=== PATIENT | male | born 1945 | race Caucasian/White ===

== ENCOUNTER 2018-09-07 16:17 | Inpatient (IN) | payer MEDICARE, BC ==
[~2018-09-07] VITALS: Ht 182.9 cm; Wt 77.1 kg
[~2018-09-07 16:17] MED LIST: FLUOXETINE
[2018-09-07] MEDS ORDERED: FLUO10TA PO (17:09)
[2018-09-07] MEDS ORDERED: ACET325T53 PO (17:09)
[2018-09-07] MEDS ORDERED: MERO1VIA IV (17:09)
[2018-09-07] MEDS ORDERED: HYDR-3326 PO (17:09)
[2018-09-07] MEDS ORDERED: LORA-114 PO (17:09)
[2018-09-07] MEDS ORDERED: MENT71OI TOP (17:09)
[2018-09-07] MEDS ORDERED: PANT40TA2 PO (17:09)
[2018-09-07] MEDS ORDERED: MULT-1045 PO (17:09)
[2018-09-07] MEDS ORDERED: ALBU2.5V7 NEB (17:09)
[2018-09-07] MEDS ORDERED: CLON0.5T12 PO (17:09)
[2018-09-07] MEDS ORDERED: LACT1CAP57 PO (17:09)
[2018-09-07] MEDS ORDERED: FLUT1BLS INH (17:09)
[2018-09-07] MEDS ORDERED: IPRA0.2S6 NEB (17:09)
[2018-09-07] MEDS ORDERED: RIVA20TA PO (17:23)
[2018-09-07 19:30] VITALS: BP 104/74
[2018-09-07] MEDS ORDERED: IPRATROPIUM BROMIDE 0.5 MG/2.5 ML NEBU NEB PRN (19:30)
[2018-09-07] MEDS ORDERED: ALBUTEROL SULFATE 2.5 MG/3 ML NEBU NEB PRN (19:30)
[2018-09-07] MEDS: MEROPENEM 1 G in IV NORMAL SALINE 100 ML IV SCH (21:23)
[2018-09-07] MEDS ORDERED: MEROPENEM 1 G VIAL IV SCH (22:00)
[2018-09-07] MEDS ORDERED: MEROPENEM 0.5 G in IV NORMAL SALINE 50 ML IV SCH (22:00)
[2018-09-07] MEDS ORDERED: Z GUARD REMEDY PASTE 57 GM TUBE TOP PRN (23:15)
--- NOTE | 2018-09-08 01:18 | NUR ---
received a 73 year old male admitted from Med-surg with admitting diagnosis of left hip IM nailing secondary to a mechanical fall. alert and oriented x3-4 On continous O2 @ 2L via nasal cannula, pulse ox 95%. Lungs CTA VSS needs attended. at bedside. Has a left #20 INT on antibiotic Meropenem secondary to gm (+) cocci in the sputum. Left hip with nasim intact with 3 4x4 dressing. Bruise noted on left hip. Patient also has rash on back area, denies itching but redness noted. On fall precautions, call yancey within reach. Patient is also on 1:1 sitter at bedside due to periods of confusion and forgetfulness, sometimes trying to get OOB. Rivas catheter intact draining yellow urine. I & O monitor. Denies any pain nor any discomfort. Dr Mills aware of patient's admission. Will let Dr Davila know about patient's admission in am.
[2018-09-08] MEDS ORDERED: ACETAMINOPHEN 325 MG TABLET PO PRN (02:45)
[2018-09-08] MEDS ORDERED: CLONAZEPAM 0.5 MG TABLET PO PRN (02:45)
[2018-09-08] MEDS ORDERED: CALMOSEPTINE 113 GM OINTMENT TOP PRN (02:45)
[2018-09-08] MEDS: HYDROCODONE/APAP 5-325MG TABLET PO PRN ×2 (02:58→14:20)
[2018-09-08] MEDS: MEROPENEM 1 G in IV NORMAL SALINE 100 ML IV SCH ×3 (05:56→21:04)
[2018-09-08 06:36] VITALS: BP 114/75
[2018-09-08] MEDS: PANTOPRAZOLE SODIUM 40 MG TABLET.DR PO SCH (06:42)
[2018-09-08 08:00] VITALS: BP 99/71
[2018-09-08] MEDS ORDERED: Medication Not On Formulary EA (Multivitamin (Multi-Vitamin Daily) 1 EACH) PO SCH (09:00)
[2018-09-08] MEDS: FLUOXETINE HCL 10 MG CAPSULE PO SCH (09:36)
[2018-09-08] MEDS: LACTOBACILLUS RHAMNOSUS GG 1 EACH CAPSULE PO SCH ×2 (09:36→20:51)
[2018-09-08] MEDS: LORATADINE 10 MG TABLET PO SCH (09:36)
[2018-09-08] MEDS: MULTIVITAMINS,THERAPEUTIC TABLET PO SCH (09:37)
[2018-09-08] MEDS: FLUTICASONE/VILANTEROL 1 EACH BLST.W.DEV INH SCH (14:23)
[2018-09-08 16:00] VITALS: BP 104/78
[2018-09-08] MEDS: RIVAROXABAN 10 MG TABLET PO SCH (17:48)
[2018-09-08 19:53] VITALS: BP 111/72
[2018-09-08] MEDS: HYDROCODONE/APAP 10-325 MG TABLET PO PRN (20:52)
--- NOTE | 2018-09-08 22:16 | NUR ---
SBAR report received. Awake upon rounds. AAO x3-4 On continous O2 @2L via nasal cannula, pulse Ox 95%. On IV antibiotic for gm (+) cocci in the sputum. Tolerated IV antibiotic well, no side effects noted, IV ABT going to left arm INT, no signs of infiltration or swelling noted on left arm. Rivas catheter intact draining yellow colored urine. I & O monitor. VSS. Medicated with 1 tab [place] as needed for pain on the left hip. Left hip incision intact with nasim and dry sterile dressing applied. VSS fall precautions maintained. Siderails up for safety. Needs attended. Call yancey within reach.
[2018-09-09] MEDS: MEROPENEM 1 G in IV NORMAL SALINE 100 ML IV SCH ×3 (06:14→21:17)
[2018-09-09] MEDS: PANTOPRAZOLE SODIUM 40 MG TABLET.DR PO SCH (06:29)
[2018-09-09 08:00] VITALS: BP 113/73
[2018-09-09] MEDS: LACTOBACILLUS RHAMNOSUS GG 1 EACH CAPSULE PO SCH ×2 (08:58→21:16)
[2018-09-09] MEDS: FLUTICASONE/VILANTEROL 1 EACH BLST.W.DEV INH SCH (08:58)
[2018-09-09] MEDS: LORATADINE 10 MG TABLET PO SCH (08:58)
[2018-09-09] MEDS: MULTIVITAMINS,THERAPEUTIC TABLET PO SCH (08:59)
[2018-09-09] MEDS: FLUOXETINE HCL 10 MG CAPSULE PO SCH (08:59)
--- NOTE | 2018-09-09 10:00 | NUR ---
Received pt. in bed with eyes closed and comfortable. Pt. A/Ox2-3 with episodes of forgetfulness and confusion. Pt responsive to verbal and tactile stimuli. Denies SOB and CP at this time. All due AM medications administered and tolerated well. Received with IV infusion for gram + cocci of the sputum. No new skin condition noted, lt. hip (3 sites) covered with surgical dressing. Safety measures and fall precaution in placed. Call light and all frequently used items within pt. reach. Will continue to monitor accordingly.
[2018-09-09] MEDS: HYDROCODONE/APAP 10-325 MG TABLET PO PRN ×2 (14:07→18:55)
[2018-09-09 16:00] VITALS: BP 133/77
[2018-09-09] MEDS: RIVAROXABAN 10 MG TABLET PO SCH (17:08)
--- NOTE | 2018-09-09 18:59 | NUR ---
EOS NOTE: No significant change during this shift. All other scheduled medications given and taken by pt. IV ABX given with no ASE noted. Pt. visited pt. Safety measure and precaution in placed. No new skin condition noted. Lt. hip surgical dressing changed as ordered. All pt. needs attended and met. Call light and all frequently used items within pt. reach. Will endorse to oncoming shift accordingly.
[2018-09-09 21:44] VITALS: BP 105/72
--- NOTE | 2018-09-10 02:18 | NUR ---
Received pt at the beginning of shift sleeping comfortably in bed. Aroused easily when alerted by name. AAO x2-3, with episodes of confusion. No acute distress noted. No c/o pain or discomfort, no facial cues for pain noted. IV on left forearm gauge 20, patent and intact, pt receiving Merrem. All due meds given as ordered. Safety measures maintained. Call light and personal belongings within reach. Will continue to monitor.
[2018-09-10] MEDS: PANTOPRAZOLE SODIUM 40 MG TABLET.DR PO SCH (06:08)
[2018-09-10] MEDS: MEROPENEM 1 G in IV NORMAL SALINE 100 ML IV SCH ×2 (06:08→14:15)
[2018-09-10 08:00] VITALS: BP 116/63
[2018-09-10] MEDS: LACTOBACILLUS RHAMNOSUS GG 1 EACH CAPSULE PO SCH ×2 (08:33→20:18)
[2018-09-10] MEDS: FLUTICASONE/VILANTEROL 1 EACH BLST.W.DEV INH SCH (08:33)
[2018-09-10] MEDS: LORATADINE 10 MG TABLET PO SCH (08:33)
[2018-09-10] MEDS: MULTIVITAMINS,THERAPEUTIC TABLET PO SCH (08:33)
[2018-09-10] MEDS: FLUOXETINE HCL 10 MG CAPSULE PO SCH (08:33)
[2018-09-10 11:40] LABS: BASOPHILS # (AUTO) 0.1 K/uL (0.0-8.0); BASOPHILS % (AUTO) 1.7 % (0.0-2.0); EOSINOPHILS # (AUTO) 0.4 K/uL (0.0-0.7); HEMATOCRIT 39.4 % (36.7-47.1); HEMOGLOBIN 13.5 g/dL (12.5-16.3); LYMPHOCYTES # (AUTO) 1.4 K/uL (20.0-40.0); LYMPHOCYTES % (AUTO) 16.9 % (20.5-51.5); MEAN CORPUSCULAR HEMOGLOBIN 31.2 uug (23.8-33.4); MEAN CORPUSCULAR HGB CONC 34 g/dL (32.5-36.3); MEAN CORPUSCULAR VOLUME 90.9 fL (73.0-96.2); MONOCYTES # (AUTO) 0.6 K/uL (2.0-10.0); MONOCYTES % (AUTO) 7.1 % (0.0-11.0); NEUTROPHILS # (AUTO) 5.8 K/uL (1.8-8.9); NEUTROPHILS % (AUTO) 69.3 % (38.5-71.5); PLATELET COUNT (AUTO) 601 K/uL (152-348); RED BLOOD CELL COUNT(AUTO) 4.33 MIL/uL (4.06-5.63); WHITE BLOOD COUNT (AUTO) 8.4 K/uL (3.6-10.2)
[2018-09-10 11:44] LABS: CARBON DIOXIDE 23 mmol/L (21-32); CHLORIDE 104 mmol/L (98-107); GLUCOSE 130 mg/dL (74-106); PHOSPHOROUS 3.2 mg/dL (2.5-4.9); POTASSIUM 4.3 mmol/L (3.5-5.1); UREA NITROGEN, BLOOD 20 mg/dL (7-18)
--- NOTE | 2018-09-10 11:46 | NUR ---
WOUND CARE CONSULT: PT PRESENTS WITH RASH TO BACK, BLANCHABLE REDNESS TO BUTTOCKS, SURGICAL DRESSING TO LEFT HIP/THIGH AREA, PRESENT ON ADMISSION. RECOMMENDATIONS MADE FOR SKIN PROTECTION AND DISCUSSED WITH NURSING STAFF. DEFER TO MD FOR RASH, UNKNOWN ETIOLOGY. DEFER TO SURGEON FOR SURGICAL SITE. WILL SEE PRN. MD IN AGREEMENT WITH PLAN OF CARE. CURRENT MAYE SCORE IS 16.
--- NOTE | 2018-09-10 12:33 | NUR ---
Received patient awake, alert and oriented with periods of confusion. Last dose of ABT treatment for PNA. chest x-ray relayed to MD Lucas with no new order. seen and examined by MD Reyna with order continue monitoring and oxygen via nasal cannula with PRN order. Wound nurse check the skin with order off loading turn and position every 2 hours. Continue therapy for ADL activity. will continue monitor
[2018-09-10] MEDS: MAGNESIUM HYDROXIDE 30 ML LIQUID UDC PO PRN (13:05)
[2018-09-10] MEDS: HYDROCODONE/APAP 10-325 MG TABLET PO PRN ×2 (13:11→20:23)
--- NOTE | 2018-09-10 13:20 | NUR ---
INTERDISCIPLINARY TEAM CONFERENCE
[2018-09-10 16:00] VITALS: BP 116/70
[2018-09-10] MEDS: ENSURE WITH FIBER 237 ML LIQUID (CHOCOLATE) PO SCH (16:30)
[2018-09-10] MEDS: RIVAROXABAN 10 MG TABLET PO SCH (16:33)
--- NOTE | 2018-09-10 20:58 | NUR ---
Received pt resting in bed. AAO x1-2. No acute distress noted, on room air and tolerating well. C/o generalized pain /, PRN [place] given as ordered. All due meds given. Turned and repositioned. Rivas catheter draining well with yellow colored urine. Safety measures maintained. Call light and personal belongings within reach. Will continue to monitor.
[2018-09-10 21:05] VITALS: BP 98/77
[2018-09-11] MEDS: HYDROCODONE/APAP 10-325 MG TABLET PO PRN ×4 (00:45→17:59)
[2018-09-11 05:02] VITALS: BP 114/69
[2018-09-11] MEDS: PANTOPRAZOLE SODIUM 40 MG TABLET.DR PO SCH (06:25)
[2018-09-11] MEDS: MULTIVITAMINS,THERAPEUTIC TABLET PO SCH (09:01)
[2018-09-11] MEDS: LORATADINE 10 MG TABLET PO SCH (09:01)
[2018-09-11] MEDS: FLUTICASONE/VILANTEROL 1 EACH BLST.W.DEV INH SCH (09:02)
[2018-09-11] MEDS: LACTOBACILLUS RHAMNOSUS GG 1 EACH CAPSULE PO SCH ×2 (09:03→20:40)
[2018-09-11] MEDS: FLUOXETINE HCL 10 MG CAPSULE PO SCH (09:05)
[2018-09-11] MEDS: ENSURE WITH FIBER 237 ML LIQUID (CHOCOLATE) PO SCH ×2 (09:10→17:54)
[2018-09-11 10:09] VITALS: BP 124/83
[2018-09-11] MEDS: RIVAROXABAN 10 MG TABLET PO SCH (17:51)
[2018-09-11] MEDS ORDERED: BISACODYL 5 MG TABLET.DR PO PRN (19:30)
[2018-09-11 20:23] VITALS: BP 107/75
[2018-09-11] MEDS: MAGNESIUM HYDROXIDE 30 ML LIQUID UDC PO PRN (20:40)
--- NOTE | 2018-09-11 20:45 | NUR ---
nsg: Received pt resting in bed. Alert and oriented x1-2.pleasant upon approach. No acute distress noted, on room air and tolerating well.denies pain or discomfort at this time.All due meds given. patient is constipated. mom 30 ml po prn given.Turned and repositioned. Rivas catheter draining well with yellow colored urine. Safety measures maintained. Call light and personal belongings within reach. Will continue to monitor.
[2018-09-12 04:37] VITALS: BP 103/66
--- NOTE | 2018-09-12 05:52 | NUR ---
NSG:Resting in bed comfortably. No significant change during this shift. Safety measure and precaution in placed. No new skin condition noted. Lt. hip surgical dressing changed as ordered. All pt. needs attended and met. Call light and all frequently used items within pt. reach. f/c in place draining yellow urine.denies pain or discomfort at this time.
[2018-09-12] MEDS: PANTOPRAZOLE SODIUM 40 MG TABLET.DR PO SCH (06:12)
--- NOTE | 2018-09-12 06:52 | NUR ---
nsg: mom given @ hs . no result noted.
[2018-09-12 08:03] VITALS: BP 104/76
[2018-09-12] MEDS: LORATADINE 10 MG TABLET PO SCH (08:58)
[2018-09-12] MEDS: MULTIVITAMINS,THERAPEUTIC TABLET PO SCH (08:58)
[2018-09-12] MEDS: FLUTICASONE/VILANTEROL 1 EACH BLST.W.DEV INH SCH (09:00)
[2018-09-12] MEDS: LACTOBACILLUS RHAMNOSUS GG 1 EACH CAPSULE PO SCH ×2 (09:01→20:52)
[2018-09-12] MEDS: FLUOXETINE HCL 10 MG CAPSULE PO SCH (09:01)
[2018-09-12] MEDS: ENSURE WITH FIBER 237 ML LIQUID (CHOCOLATE) PO SCH ×2 (09:04→16:48)
[2018-09-12] MEDS: HYDROCODONE/APAP 10-325 MG TABLET PO PRN ×3 (09:20→18:00)
--- NOTE | 2018-09-12 09:58 | NUR ---
Patient received in bed. Response to touch and auditory stimulation. AAO x4. Able to make needs known. No sign of acute distress or SOB was noted. On room air. [place] 10/325 given for 7/10 pain. Patient assessed. Safety measures maintained. Rivas draining yellow urine. Bed in low position, brake and alarm on, side rails up x2. Call light and personal belongings within reach. Will continue to monitor.
--- NOTE | 2018-09-12 14:59 | NUR ---
NSG: Left forearm IV D/C due IV being over 72 hours old with IV medications no longer being administered. No complaint of pain during procedure. Patient left resting comfortably in bed. Will continue to monitor.
[2018-09-12 16:25] VITALS: BP 95/63
[2018-09-12] MEDS: RIVAROXABAN 10 MG TABLET PO SCH (16:48)
--- NOTE | 2018-09-12 18:42 | NUR ---
End of Shift Note: No significant change during this shift. All other scheduled medications given and taken by pt. PRN [place] given at 1800. Pt. visited and brought food.n Safety measures and precaution in place for patient. No new skin condition noted. Teaching for incentive spirometry use performed. Used teach back method. All pt. needs attended and met. Call light and all frequently used items within pt. reach. Will endorse to oncoming shift.
[2018-09-12 20:37] VITALS: BP 103/63
[2018-09-12] MEDS: OXYCODONE HCL 10 MG TAB.SR.12H PO SCH (20:55)
--- NOTE | 2018-09-12 23:18 | NUR ---
Received pt in bed, AAO x 1-2 watching television. No acute distress noted. Verbally responsive and able to make needs known. Denies pain or discomfort. All due medications give as ordered by MD, tolerated well. Rivas draining clear, yellow urine into bag. All safety measures and fall precautions maintained. Call light and all personal belongings within reach. Will continue to monitor.
[2018-09-13 04:55] VITALS: BP 101/73
[2018-09-13] MEDS: PANTOPRAZOLE SODIUM 40 MG TABLET.DR PO SCH (06:32)
[2018-09-13 07:35] VITALS: BP 109/57
[2018-09-13] MEDS: MULTIVITAMINS,THERAPEUTIC TABLET PO SCH (08:58)
[2018-09-13] MEDS: LORATADINE 10 MG TABLET PO SCH (08:59)
[2018-09-13] MEDS: FLUOXETINE HCL 10 MG CAPSULE PO SCH (09:00)
[2018-09-13] MEDS: ENSURE WITH FIBER 237 ML LIQUID (CHOCOLATE) PO SCH ×2 (09:00→17:17)
[2018-09-13] MEDS: OXYCODONE HCL 10 MG TAB.SR.12H PO SCH ×2 (09:00→20:29)
[2018-09-13] MEDS: LACTOBACILLUS RHAMNOSUS GG 1 EACH CAPSULE PO SCH ×2 (09:00→20:29)
[2018-09-13] MEDS: FLUTICASONE/VILANTEROL 1 EACH BLST.W.DEV INH SCH (09:01)
--- NOTE | 2018-09-13 09:27 | NUR ---
Received pt. in bed with eyes closed and comfortable. Pt. A/Ox1-2 with episodes of forgetfulness and confusion. Pt responsive to verbal and tactile stimuli. Denies SOB and CP at this time. All due AM medications administered and tolerated well. No new skin condition noted, lt. hip (3 sites) covered with surgical dressing. Pt. seen by Dr. Reyna this AM with no new order. Safety measures and fall precaution in placed. Call light and all frequently used items within pt. reach. Will continue to monitor accordingly. Addendum: 09/13/18 at 0940 by JOHANA LOVING RN F/C intact with clear yellow urine output, no device malfunction identified.
[2018-09-13 16:30] VITALS: BP 123/64
[2018-09-13] MEDS: RIVAROXABAN 10 MG TABLET PO SCH (17:22)
--- NOTE | 2018-09-13 18:32 | NUR ---
EOS NOTE: No significant change during this shift. All scheduled medications given and tolerated well. Safety measure and precaution in placed. No new skin condition noted. Lt. hip surgical dressing C/D/I. All pt. needs attended and met. Call light and all frequently used items within pt. reach. Will endorse to oncoming shift accordingly.
[2018-09-13 19:30] VITALS: BP 104/71
[2018-09-14] MEDS: HYDROCODONE/APAP 10-325 MG TABLET PO PRN ×2 (01:09→14:10)
[2018-09-14] MEDS: PANTOPRAZOLE SODIUM 40 MG TABLET.DR PO SCH (07:02)
[2018-09-14 08:48] VITALS: BP 107/71
[2018-09-14] MEDS: LORATADINE 10 MG TABLET PO SCH (08:55)
[2018-09-14] MEDS: MULTIVITAMINS,THERAPEUTIC TABLET PO SCH (08:55)
[2018-09-14] MEDS: ENSURE WITH FIBER 237 ML LIQUID (CHOCOLATE) PO SCH ×2 (08:56→17:55)
[2018-09-14] MEDS: OXYCODONE HCL 20 MG TAB.SR.12H PO SCH ×3 (08:56→23:18)
[2018-09-14] MEDS: LACTOBACILLUS RHAMNOSUS GG 1 EACH CAPSULE PO SCH ×2 (08:56→21:00)
[2018-09-14] MEDS: FLUOXETINE HCL 10 MG CAPSULE PO SCH (08:57)
[2018-09-14] MEDS: FLUTICASONE/VILANTEROL 1 EACH BLST.W.DEV INH SCH (08:57)
[2018-09-14 16:06] VITALS: BP 104/71
[2018-09-14] MEDS: RIVAROXABAN 10 MG TABLET PO SCH (17:59)
[2018-09-14 20:23] VITALS: BP 115/70
[2018-09-15 04:00] VITALS: BP 106/70
--- NOTE | 2018-09-15 06:00 | NUR ---
SLEPT MOST OF NIGHT AFTER OXYCONTIN GIVEN LAST NIGHT.
[2018-09-15] MEDS: PANTOPRAZOLE SODIUM 40 MG TABLET.DR PO SCH (06:44)
[2018-09-15 08:00] VITALS: BP 141/82
[2018-09-15] MEDS: LORATADINE 10 MG TABLET PO SCH (08:51)
[2018-09-15] MEDS: MULTIVITAMINS,THERAPEUTIC TABLET PO SCH (08:51)
[2018-09-15] MEDS: FLUTICASONE/VILANTEROL 1 EACH BLST.W.DEV INH SCH (08:51)
[2018-09-15] MEDS: OXYCODONE HCL 20 MG TAB.SR.12H PO SCH ×2 (08:51→20:49)
[2018-09-15] MEDS: FLUOXETINE HCL 10 MG CAPSULE PO SCH (08:51)
[2018-09-15] MEDS: LACTOBACILLUS RHAMNOSUS GG 1 EACH CAPSULE PO SCH ×2 (08:51→20:49)
[2018-09-15] MEDS: ENSURE WITH FIBER 237 ML LIQUID (CHOCOLATE) PO SCH ×2 (08:52→17:31)
[2018-09-15] MEDS: HYDROCODONE/APAP 10-325 MG TABLET PO PRN (08:52)
--- NOTE | 2018-09-15 10:56 | NUR ---
Received pt. in bed with eyes closed and comfortable. Pt. A/Ox2-3 with episodes of forgetfulness and confusion. Pt responsive to verbal and tactile stimuli. Denies SOB and CP at this time. All due AM medications administered and tolerated well. Refused Oxycontin (ATC) this AM, instead requested for [place] PRN, pt. teaching provided and verbalized understanding. No new skin condition noted. Rivas draining with clear yellow urine, remain patent and intact. Pt. with scheduled appointment to see Dr. Titus (Ortho) at 1500 with p/u time of 1400. Safety measures and fall precaution in placed. Call light and all frequently used items within pt. reach. Will continue to monitor accordingly.
--- NOTE | 2018-09-15 14:13 | NUR ---
1400 [facility] staff on-site for pt. p/u. Report and packet with CD given to receiving staff. Pt. left facility @ 140 for follow-up appt to see Dr. Titus in stable condition.
[2018-09-15 16:00] VITALS: BP 123/72
[2018-09-15] MEDS: RIVAROXABAN 10 MG TABLET PO SCH (17:42)
--- NOTE | 2018-09-15 18:38 | NUR ---
EOS NOTE: Pt. returned from appointment at 1700. Lt. hip incision nasim D/C during appt, open to air with steri-strips. Pictures taken and placed in pt. chart. No significant change during this shift. All scheduled medications given and tolerated well. brought in Wellbutrin SR bottle, per pt. was taking Wellbutrin 150 mg 2 tabs = 300 mg po qd with prozac at home. Notified Dr. Rosales and amenable with order. Orders noted and carried out. Safety measure and precaution in placed. Lt. hip surgical dressing C/D/I. All pt. needs attended and met. Call light and all frequently used items within pt. reach. Will endorse to oncoming shift accordingly.
[2018-09-15 20:09] VITALS: BP 109/78
--- NOTE | 2018-09-15 23:14 | NUR ---
Received pt in bed, appearing to be asleep but easily arousable to verbal stimuli and light touch. No acute distress noted. Verbally responsive and able to make needs known. Denies pain or discomfort at this time. All due medications given as ordered, tolerated well. Rivas cath noted, draining clear yellow urine into bag. All safety measures and fall precautions maintained. Call light and all personal belongings within reach. Will continue to monitor.
[2018-09-16 05:02] VITALS: BP 115/62
[2018-09-16] MEDS: PANTOPRAZOLE SODIUM 40 MG TABLET.DR PO SCH (06:03)
[2018-09-16 08:00] VITALS: BP 133/86
[2018-09-16] MEDS: HYDROCODONE/APAP 10-325 MG TABLET PO PRN (08:12)
[2018-09-16] MEDS: LORATADINE 10 MG TABLET PO SCH (08:52)
[2018-09-16] MEDS: MULTIVITAMINS,THERAPEUTIC TABLET PO SCH (08:52)
[2018-09-16] MEDS: FLUTICASONE/VILANTEROL 1 EACH BLST.W.DEV INH SCH (08:52)
[2018-09-16] MEDS: LACTOBACILLUS RHAMNOSUS GG 1 EACH CAPSULE PO SCH ×2 (08:53→20:45)
[2018-09-16] MEDS: FLUOXETINE HCL 10 MG CAPSULE PO SCH (08:53)
[2018-09-16] MEDS: ENSURE WITH FIBER 237 ML LIQUID (CHOCOLATE) PO SCH ×2 (08:54→17:20)
[2018-09-16] MEDS: OXYCODONE HCL 20 MG TAB.SR.12H PO SCH ×2 (08:56→20:43)
[2018-09-16] MEDS ORDERED: buPROPion SR 150 MG TABLET.SA PO SCH (09:00)
--- NOTE | 2018-09-16 10:00 | NUR ---
Patient received in be. Alert and oriented x 1-2 with periods of confusion. Patient complained of pain, and requested [place] to be given instead of Oxycotin (ATC). Teaching regarding pain management strategy given. Verbalized understanding of teaching. Reinforcement of incentive spirometer use done. No new skin condition noted. Rivas draining with clear yellow urine. Call light and frequently used items within reach. Will continue to monitor.
[2018-09-16 16:00] VITALS: BP 113/71
[2018-09-16] MEDS: RIVAROXABAN 10 MG TABLET PO SCH (17:20)
--- NOTE | 2018-09-16 18:52 | NUR ---
End of shift note: No significant change during shift. Pharmacist questing Wellbutrin order from . Wanting to verify dose . contacted, but did not answer phone. Will endorse to oncoming shift to talk to in the morning. All due medications given-tolerated will. Call light and frequently used items within reach. Will endorse to oncoming shift accordingly.
[2018-09-16 21:21] VITALS: BP 111/67
[2018-09-17] MEDS: HYDROCODONE/APAP 10-325 MG TABLET PO PRN (01:57)
--- NOTE | 2018-09-17 04:40 | NUR ---
sleeping on short intervals. easily awaken. needs attended. engle catheter intact draining delfino colored urine. fall precautions maintained. siderails up for safety. needs attended. medicated for pain as needed. will monitor patient.
[2018-09-17 05:42] VITALS: BP 110/72
[2018-09-17] MEDS: PANTOPRAZOLE SODIUM 40 MG TABLET.DR PO SCH (06:08)
[2018-09-17 08:00] VITALS: BP 124/77
[2018-09-17] MEDS: OXYCODONE HCL 20 MG TAB.SR.12H PO SCH ×2 (09:00→21:04)
[2018-09-17] MEDS: MULTIVITAMINS,THERAPEUTIC TABLET PO SCH (09:00)
[2018-09-17] MEDS: FLUTICASONE/VILANTEROL 1 EACH BLST.W.DEV INH SCH (09:00)
[2018-09-17] MEDS: LORATADINE 10 MG TABLET PO SCH (09:00)
--- NOTE | 2018-09-17 09:00 | NUR ---
Received patient awake, alert x 2-3. Not in any for of distress. O2 at 2LPM. No SOB or chest pains noted. Wound dry and intact, kept clean and dry. Steri-strips in place. Encouraged use of spirometry.
[2018-09-17] MEDS: FLUOXETINE HCL 10 MG CAPSULE PO SCH (09:01)
[2018-09-17] MEDS: LACTOBACILLUS RHAMNOSUS GG 1 EACH CAPSULE PO SCH ×2 (09:01→21:04)
[2018-09-17] MEDS: ENSURE WITH FIBER 237 ML LIQUID (CHOCOLATE) PO SCH ×2 (09:01→17:34)
--- NOTE | 2018-09-17 10:00 | NUR ---
Up with occupational therapy, denies any pain at the moment. Routine Oxycontin 20 mg given. Tolerating room air at 94%-97% with therapy.
--- NOTE | 2018-09-17 13:25 | NUR ---
INTERDISCIPLINARY TEAM CONFERENCE
[2018-09-17 16:28] VITALS: BP 113/73
[2018-09-17] MEDS: RIVAROXABAN 10 MG TABLET PO SCH (17:34)
--- NOTE | 2018-09-17 19:10 | NUR ---
Sleeping during initial rounds. No s/s of respiratory distress noted. Safety measure and afll precaution maintained. Continue care as planned.
[2018-09-17 20:04] VITALS: BP 124/79
[2018-09-18] MEDS: PANTOPRAZOLE SODIUM 40 MG TABLET.DR PO SCH (06:47)
--- NOTE | 2018-09-18 07:24 | NUR ---
Shift End Report: VSS. No complaint presented all night. Slept well. No fall/injury. F/C intact and patent with clear yellow urine output in adequate amount. All needs attended and met.No significant event reported all night. Continue current rehab plan of care.
[2018-09-18 08:00] VITALS: BP 113/70
[2018-09-18] MEDS: FLUOXETINE HCL 10 MG CAPSULE PO SCH (09:44)
[2018-09-18] MEDS: LACTOBACILLUS RHAMNOSUS GG 1 EACH CAPSULE PO SCH ×2 (09:44→21:00)
[2018-09-18] MEDS: FLUTICASONE/VILANTEROL 1 EACH BLST.W.DEV INH SCH (09:44)
[2018-09-18] MEDS: ENSURE WITH FIBER 237 ML LIQUID (CHOCOLATE) PO SCH ×2 (09:45→17:19)
[2018-09-18] MEDS: buPROPion SR 150 MG TABLET.SA PO SCH (09:45)
[2018-09-18] MEDS: MULTIVITAMINS,THERAPEUTIC TABLET PO SCH (09:46)
[2018-09-18] MEDS: LORATADINE 10 MG TABLET PO SCH (09:46)
[2018-09-18] MEDS: OXYCODONE HCL 20 MG TAB.SR.12H PO SCH ×2 (09:47→21:00)
[2018-09-18] MEDS: HYDROCODONE/APAP 10-325 MG TABLET PO PRN ×2 (12:46→19:03)
[2018-09-18 16:00] VITALS: BP 99/58
[2018-09-18] MEDS: RIVAROXABAN 10 MG TABLET PO SCH (17:15)
[2018-09-18 19:30] VITALS: BP 101/64
--- NOTE | 2018-09-18 22:21 | NUR ---
Received pt in bed, AAO x 3 with family member at bedside. No acute distress noted. Verbally responsive, primarily [place] speaking but able to communicate basic needs. All due medications given as ordered, tolerated well. Denies pain or discomfort at this time. Rivas draining well, clear yellow urine into bag. All safety measures and fall precautions maintained. Call light and all personal belongings within reach. Will continue to monitor. Addendum: 09/18/18 at 2226 by Pavel Chen RN Correction: NOT [place] speaking. Error. Patient is primarily emir[place] speaking. Able to communicate all needs in emirati.
[2018-09-19 04:30] VITALS: BP 112/74
[2018-09-19] MEDS: PANTOPRAZOLE SODIUM 40 MG TABLET.DR PO SCH (06:33)
[2018-09-19 07:55] VITALS: BP 104/61
[2018-09-19] MEDS: FLUOXETINE HCL 10 MG CAPSULE PO SCH (08:21)
[2018-09-19] MEDS: buPROPion SR 150 MG TABLET.SA PO SCH (08:21)
[2018-09-19] MEDS: FLUTICASONE/VILANTEROL 1 EACH BLST.W.DEV INH SCH (08:21)
[2018-09-19] MEDS: ENSURE WITH FIBER 237 ML LIQUID (CHOCOLATE) PO SCH ×2 (08:21→17:12)
[2018-09-19] MEDS: LORATADINE 10 MG TABLET PO SCH (08:22)
[2018-09-19] MEDS: MULTIVITAMINS,THERAPEUTIC TABLET PO SCH (08:22)
[2018-09-19] MEDS: OXYCODONE HCL 20 MG TAB.SR.12H PO SCH ×2 (08:22→20:34)
[2018-09-19] MEDS: LACTOBACILLUS RHAMNOSUS GG 1 EACH CAPSULE PO SCH ×2 (08:22→20:33)
--- NOTE | 2018-09-19 09:47 | NUR ---
Received pt. in bed with eyes closed and comfortable. Pt. A/Ox2-3 responsive to verbal and tactile stimuli. Denies SOB and CP at this time. All due AM medications administered and tolerated well. Refused Oxycontin (ATC), multivitamin, and claritin this AM. Risk and benefits discussed and explained to pt. with verbalization of understanding. No new skin condition noted. Received order from MD to d/c engle catheter. Orders noted and carried out, pt. tolerated procedure well with no complication noted. Will monitor for urinary retention. Safety measures and fall precaution in placed. Call light and all frequently used items within pt. reach. Will continue to monitor accordingly.
--- NOTE | 2018-09-19 11:10 | NUR ---
Assumed care at this time, report received from Ramos FOY. Patient remains alert, verbally responsive, not in any form of acute distress. He denies any pain or discomfort at this time. Assisted with his needs. No new skin condition noted at this time. Call light and frequently used items placed within reach.
--- NOTE | 2018-09-19 14:20 | NUR ---
Patient was able to void freely. He denies any pain or discomfort at this time.
[2018-09-19 16:30] VITALS: BP 120/68
[2018-09-19] MEDS: RIVAROXABAN 10 MG TABLET PO SCH (17:12)
[2018-09-19 20:00] VITALS: BP 118/68
--- NOTE | 2018-09-19 20:02 | NUR ---
Patient received in bed- resting comfortably. Alert and oriented x 3. Confused at times. No shortness of breath or pain noted at this time. Verbally responsive when prompted. Rivas removed during AM shift. Will monitor for urine during the night. Call light and frequently used items within reach. Will continue to monitor.
[2018-09-20 05:30] VITALS: BP 116/60
[2018-09-20] MEDS: PANTOPRAZOLE SODIUM 40 MG TABLET.DR PO SCH (06:22)
--- NOTE | 2018-09-20 06:46 | NUR ---
End of Shift report: Patient slept comfortably throughout the night. All due medications given-tolerated well. Resident eager to be discharged from hospital today. All safety measures maintained throughout the night. Patient voided last night. Patient does not appear to be retaining after catheter D/C yesterday. Call light and most used items within reach. Will continue to monitor.
[2018-09-20] MEDS: buPROPion SR 150 MG TABLET.SA PO SCH (08:29)
[2018-09-20] MEDS: FLUTICASONE/VILANTEROL 1 EACH BLST.W.DEV INH SCH (08:29)
[2018-09-20] MEDS: FLUOXETINE HCL 10 MG CAPSULE PO SCH (08:30)
[2018-09-20] MEDS: MULTIVITAMINS,THERAPEUTIC TABLET PO SCH (08:30)
[2018-09-20] MEDS: OXYCODONE HCL 20 MG TAB.SR.12H PO SCH (08:30)
[2018-09-20] MEDS: LORATADINE 10 MG TABLET PO SCH (08:30)
[2018-09-20] MEDS: LACTOBACILLUS RHAMNOSUS GG 1 EACH CAPSULE PO SCH (08:30)
[2018-09-20] MEDS: ENSURE WITH FIBER 237 ML LIQUID (CHOCOLATE) PO SCH (08:44)
[2018-09-20] MEDS: MAGNESIUM HYDROXIDE 30 ML LIQUID UDC PO PRN (09:31)
--- NOTE | 2018-09-20 15:03 | NUR ---
Patient went home with via private car with home health agency at 3pm in stable condition. Medication list and instruction given to the patient and . verbalize understanding. laboratory and x-ray results given with CD. Advice ff up with ortho surgeon for hip surgery. new wheelchair given. notified.
== END 2018-09-20 15:00 | disposition home health service (06) | DRG 559 ==
PROVIDERS: ADMIT Physical Medicine & Rehabilitation Pain Medicine; ATTEND Physical Medicine & Rehabilitation Pain Medicine
DX: S72.142D Displaced intertrochanteric fracture of left femur, subsequent encounter for closed fracture with routine healing (principal); E43 Unspecified severe protein-calorie malnutrition; G92 Toxic encephalopathy; I50.31 Acute diastolic (congestive) heart failure; J96.11 Chronic respiratory failure with hypoxia; F10.239 Alcohol dependence with withdrawal, unspecified; E78.5 Hyperlipidemia, unspecified; F32.9 Major depressive disorder, single episode, unspecified; Z87.891 Personal history of nicotine dependence; J44.9 Chronic obstructive pulmonary disease, unspecified; M51.36 Other intervertebral disc degeneration, lumbar region; I77.810 Thoracic aortic ectasia; D64.9 Anemia, unspecified; I11.0 Hypertensive heart disease with heart failure; I27.20 Pulmonary hypertension, unspecified; L74.0 Miliaria rubra; Z86.718 Personal history of other venous thrombosis and embolism; L27.0 Generalized skin eruption due to drugs and medicaments taken internally; T36.0X5A Adverse effect of penicillins, initial encounter; Y92.230 Patient room in hospital as the place of occurrence of the external cause; M47.816 Spondylosis without myelopathy or radiculopathy, lumbar region; Z85.46 Personal history of malignant neoplasm of prostate; Z91.81 History of falling; R26.81 Unsteadiness on feet; Y90.9 Presence of alcohol in blood, level not specified
CPT/HCPCS: 36415; 70030-TC; 71045; 73502; 83735; 84100; 85025; 92507; 92523; 97110; 97112; 97116; 97530; 97535; J2185; J3490; J7040